=== PATIENT | male | born 1990 | race American Indian/Alaskan Native ===

== ENCOUNTER 2017-05-02 11:48 | Emergency (ER) | payer BC, MEDICAID, OTHER ==
[2017-05-02 12:01] VITALS: BP 134/75; TEMP 98.5; O2SAT 99
--- NOTE | 2017-05-02 12:28 | C.PDOC ---
History Of Present Illness 26 y/o male presents to ED with complaints of sore throat and "burning" sensation to tongue for 1 week. Patient states he has been having intermittent sore throat for 2 months. Patient was seen by PCP who gave him allergy medicine and antibiotics with no relief. Patient denies difficulty swallowing, chest pain , SOB, ear pain or fever. No other complaints at this time. Time Seen by Provider: 05/02/17 12:09 Chief Complaint (Nursing): ENT Problem History Per: Patient History/Exam Limitations: None Onset/Duration Of Symptoms: Days Current Symptoms Are (Timing): Still Present Past Medical History Reviewed: Historical Data, Nursing Documentation, Vital Signs Vital Signs: Last Vital Signs Temp 98.5 F 05/02/17 12:00 Pulse 72 05/02/17 13:29 Resp 17 05/02/17 13:29 BP 134/75 05/02/17 12:00 Pulse Ox 99 05/02/17 13:40 - Medical History PMH: No Chronic Diseases Surgical History: No Surg Hx Family History: States: No Known Family Hx - Social History Hx Tobacco Use: No Hx Alcohol Use: Yes Hx Substance Use: No (past use of ''krysta'') - Immunization History Hx Tetanus Toxoid Vaccination: No Hx Influenza Vaccination: No Hx Pneumococcal Vaccination: No Review Of Systems Constitutional: Negative for: Fever Eyes: Negative for: Pain, Redness ENT: Positive for: Throat Pain. Negative for: Ear Pain, Nose Discharge Cardiovascular: Negative for: Chest Pain Respiratory: Negative for: Cough, Shortness of Breath Gastrointestinal: Negative for: Vomiting, Abdominal Pain, Diarrhea Skin: Negative for: Rash Neurological: Negative for: Headache Physical Exam - Physical Exam Appears: Non-toxic, No Acute Distress Skin: Normal Color, Warm Head: Atraumatic, Normacephalic Eye(s): bilateral: Normal Inspection, EOMI Ear(s): Bilateral: Normal (no erythema) Nose: Normal Oral Mucosa: Moist Throat: Erythema (Mild Erythema), No Exudate, No Drooling, No Mass Neck: Normal ROM Chest: Symmetrical Cardiovascular: Rhythm Regular, No Murmur Respiratory: Normal Breath Sounds, No Rales, No Rhonchi, No Wheezing Extremity: Bilateral: Atraumatic, Normal ROM Neurological/Psych: Oriented x3, Normal Speech Gait: Steady ED Course And Treatment O2 Sat by Pulse Oximetry: 99 (RA) Pulse Ox Interpretation: Normal Medical Decision Making Medical Decision Making: Patient with sore throat for over 2 months. Strep test and culture ordered. Strep was negative. Patient remained well, afebrile in no distress. He has no intraoral swelling or difficulty swallowing. Recommend lozenges and to follow up with ENT Disposition Counseled Patient/Family Regarding: Diagnosis, Need For Followup - Disposition Referrals: Minesh Linares MD [Staff Provider] - Disposition: HOME/ ROUTINE Disposition Time: 13:14 Condition: GOOD Additional Instructions: Please try taking lozenges for throat pain and discomfort Drink plenty of fluids If symptoms persist you may follow up with ENT Dr Linares Instructions: Pharyngitis (ED) - POA Present On Arrival: None - Clinical Impression Clinical Impression: Throat pain in adult - PA / ORTHOTIST PROSTHETIST / Resident Statement MD/DO has reviewed & agrees with the documentation as recorded. - Scribe Statement The provider has reviewed the documentation as recorded by the Reneeibgin Romero All medical record entries made by the Reneeibgin were at my direction and personally dictated by me. I have reviewed the chart and agree that the record accurately reflects my personal performance of the history, physical exam, medical decision making, and the department course for this patient. I have also personally directed, reviewed, and agree with the discharge instructions and disposition.
[2017-05-02 13:30] VITALS: PULSE 72; RESP 17
== END 2017-05-02 13:30 | disposition home or self-care (01) ==
LOC: C.ER 11:48
DX: R07.0 Pain in throat (principal); Z87.891 Personal history of nicotine dependence

== ENCOUNTER 2017-12-10 21:55 | Emergency (ER) | payer MEDICAID ==
--- NOTE | 2017-12-10 22:31 | C.PDOC ---
History Of Present Illness Patient presents to ER today with complaints of headache, present intermittently for the past month. Patient states today he felt weaker and had some pressure like headache, prompting his visit. He reports the pain is mostly in tempero-occipital area and is dull and achinglike. He denies any fever, chills, vision changes. No other complaints. Time Seen by Provider: 12/10/17 22:05 Chief Complaint (Nursing): Headache History Per: Patient History/Exam Limitations: no limitations Onset/Duration Of Symptoms: Intermittent Episodes, Persistent Current Symptoms Are (Timing): Still Present Severity: Mild Pain Scale Rating Of: 2 Quality: Aching, Pressure Preceeding Symptoms: denies: Visual Disturbances Associated Symptoms: denies: Blurred Vision, Nausea, Vomiting Recent travel outside of the [place]: No Additional History Per: Family Past Medical History Reviewed: Historical Data, Nursing Documentation, Vital Signs Vital Signs: Last Vital Signs Temp 99.0 F 12/10/17 22:06 Pulse 86 12/10/17 22:06 Resp 16 12/10/17 22:06 BP 144/85 12/10/17 22:06 Pulse Ox 99 12/10/17 23:00 - Medical History PMH: Denies: Anxiety, Bipolar Disorder, Depression, Personality Disorder, Post Traumatic Stress Disorder, Schizophrenia Surgical History: No Surg Hx Family History: States: No Known Family Hx - Social History Hx Tobacco Use: No Hx Alcohol Use: Yes Hx Substance Use: No (past use of ''krysta'') - Immunization History Hx Tetanus Toxoid Vaccination: No Hx Influenza Vaccination: No Hx Pneumococcal Vaccination: No Review Of Systems Constitutional: Negative for: Fever, Chills Eyes: Negative for: Vision Change, Redness ENT: Negative for: Ear Pain Respiratory: Negative for: Shortness of Breath Gastrointestinal: Negative for: Nausea, Vomiting Skin: Negative for: Rash Neurological: Positive for: Headache. Negative for: Weakness Psych: Negative for: Anxiety Physical Exam - Physical Exam Appears: Non-toxic, No Acute Distress Skin: Warm, Dry Head: Normacephalic, No Tenderness Eye(s): bilateral: Normal Inspection Ear(s): Bilateral: Normal Oral Mucosa: Moist Throat: No Erythema, No Exudate Neck: Trachea Midline, Supple Lymphatic: No Adenopathy (cervical) Chest: Symmetrical Cardiovascular: Rhythm Regular Respiratory: No Rales, No Rhonchi, No Wheezing Neurological/Psych: Oriented x3, Normal Speech, Normal Cognition, Normal Cranial Nerves Gait: Steady ED Course And Treatment - Laboratory Results Result Diagrams: 12/10/17 23:01 12/10/17 23:01 O2 Sat by Pulse Oximetry: 99 (RA) Pulse Ox Interpretation: Normal Reevaluation Time: 00:13 Reassessment Condition: Improved Disposition Counseled Patient/Family Regarding: Studies Performed, Diagnosis, Need For Followup - Disposition Referrals: Juan Doan MD [Staff Provider] - Oskar Ortiz MD [Staff Provider] - Disposition: HOME/ ROUTINE Disposition Time: 22:31 Condition: FAIR Additional Instructions: Please return if symptoms recur Instructions: General Headache (ED) Forms: [facility] (Portuguese) - Clinical Impression Clinical Impression: Headache - Scribe Statement The provider has reviewed the documentation as recorded by the Scribe (Pham Calvillo) Provider Attestation: All medical record entries made by the Scribe were at my direction and personally dictated by me. I have reviewed the chart and agree that the record accurately reflects my personal performance of the history, physical exam, medical decision making, and the department course for this patient. I have also personally directed, reviewed, and agree with the discharge instructions and disposition.
[2017-12-10] MEDS ORDERED: Lactated Ringer's 1,000 ML IV STA (22:45)
[2017-12-10 23:07] LABS: BASO # 0.1 K/uL (0.0-0.2); EOS # 0.1 K/uL (0.0-0.7); EOS % 0.8 % (0.0-4.0); HEMOGLOBIN 14.3 g/dL (12.0-18.0); LYMPH # 3.5 K/uL (1.0-4.3); LYMPH % 49.2 % (20.0-40.0); MEAN CORPUSCULAR HEMOGLOBIN 32.6 pg (27.0-31.0); MEAN CORPUSCULAR HGB CONC 34.7 g/dL (33.0-37.0); MEAN PLATELET VOLUME 7.8 fL (7.2-11.7); MONO # 0.5 K/uL (0.0-0.8); MONO % 6.9 % (0.0-10.0); NEUT % 42.1 % (50.0-75.0); NRBC % 0.1 % (0.0-2.0); RBC 4.38 Mil/uL (4.40-5.90); RED CELL DISTRIBUTION WIDTH 13.7 % (11.5-14.5)
[2017-12-10] MEDS ORDERED: Lactated Ringer's 1,000 ML ONE (23:10)
[2017-12-10 23:19] LABS: ALB/GLOB RATIO 1.2 (1.0-2.1); ALBUMIN 4.3 g/dL (3.5-5.0); CALCIUM 9.5 mg/dl (8.6-10.4); GFR AFRICAN-AMERICAN > 60; GFR NON-AFRICAN AMERICAN > 60
[2017-12-10 23:20] LABS: ALT/SGPT 80 U/L (21-72); AST/SGOT 46 U/L (17-59); BLOOD UREA NITROGEN 16 mg/dL (9-20)
--- NOTE | 2017-12-10 23:51 | CT ---
EXAM: CT Head Without Intravenous Contrast CLINICAL HISTORY: 27 years old, male; Pain; Headache; Headache not specified TECHNIQUE: Axial computed tomography images of the head/brain without intravenous contrast. All CT scans at this facility use one or more dose reduction techniques, viz.: automated exposure control; ma/kV adjustment per patient size (including targeted exams where dose is matched to indication; i.e. head); or iterative reconstruction technique. Coronal and sagittal reformatted images were created and reviewed. COMPARISON: No relevant prior studies available. FINDINGS: Brain: No intracranial hemorrhage. No mass. No definite edema. Ventricles: No hydrocephalus. Bones/joints: No acute fracture. Soft tissues: Unremarkable. Sinuses: Scattered minimal mucosal thickening. Mastoid air cells: No mastoid effusion. Orbits: Unremarkable as visualized. IMPRESSION: 1. No definite acute intracranial abnormality. 2. Incidental/non-acute findings are described above.
[2017-12-11 00:28] VITALS: BP 137/79; PULSE 89; RESP 20; TEMP 98; O2SAT 98
== END 2017-12-11 00:31 | disposition home or self-care (01) ==
LOC: C.ER 21:55
DX: R51 Headache (principal)
CPT/HCPCS: 70450; 80053; 85025; 96361; 96374; 96375; 99284; J1885; J2405; J7120